=== PATIENT | male | born 1975 | race American Indian/Alaskan Native ===

== ENCOUNTER 2019-06-17 20:44 | Inpatient (IN) | payer OTHER ==
[2019-06-17] MEDS ORDERED: SODIUM CHLORIDE 0.9% 500 ML 500 ML IV ONE (21:19)
[2019-06-17] MEDS ORDERED: ACETAMINOPHEN 500 MG TAB PO STA (21:19)
[2019-06-17] MEDS ORDERED: ACETAMINOPHEN 325 MG TAB PO ONE (21:33)
[2019-06-17 21:35] LABS: Basophils # (Auto) 0.1 K/mm3 (0.0-0.1); Basophils % (Auto) 0.7 % (0.0-1.8); Eosinophils % (Auto) 0.2 % (0.0-4.3); Hematocrit 35.3 % (35.5-45.6); Hemoglobin 11.7 gm/dl (11.8-15.2); Lymphocytes # (Auto) 1.7 K/mm3 (1.2-5.4); Lymphocytes % (Auto) 13.9 % (13.4-35.0); Mean Corpuscular HGB Conc 33 % (32-34); Mean Corpuscular Volume 71 fl (84-94); Monocytes # (Auto) 1.6 K/mm3 (0.0-0.8); Platelet Count 377 K/mm3 (140-440); Red Blood Count 4.97 M/mm3 (3.65-5.03); Red Cell Distribution Width 15.6 % (13.2-15.2)
[2019-06-17 21:46] LABS: INR 1.14 (0.87-1.13)
[2019-06-17 21:50] LABS: Alanine Aminotransferase 26 units/L (7-56); Albumin 4.4 g/dL (3.9-5); BUN/Creatinine Ratio 8; Blood Urea Nitrogen 9 mg/dL (9-20); Calcium 9.4 mg/dL (8.4-10.2); Hemolysis Index 0
--- NOTE | 2019-06-17 22:02 | XRay Report ---
CHEST 2 VIEWS INDICATION / CLINICAL INFORMATION: possible Sepsis. COMPARISON: None available. FINDINGS: SUPPORT DEVICES: None. HEART / MEDIASTINUM: Normal heart size when allowing for somewhat low lung volumes. LUNGS / PLEURA: Lung volumes are low, resulting in elevation of the diaphragm and bibasilar scattered atelectatic changes, which appear as linear opacities at the bases. No overt pulmonary consolidation . No pleural fluid. No pneumothorax. ADDITIONAL FINDINGS: No significant additional findings. IMPRESSION: Scattered linear opacities at the lung bases are nonspecific but more suggestive of multifocal discoi d atelectasis than pneumonia. Signer Name: Jason Salgado MD Signed: 06/17/2019 9:57 PM Workstation Name: [id number]
[2019-06-17] MEDS ORDERED: SODIUM CHLORIDE 0.9% 1000 ML 1,000 ML IV ONE (23:46)
[2019-06-17 23:50] LABS: Bacteria,Urine 1+ /HPF (Negative); Bilirubin,Urine NEG (Negative); Blood,Urine LG (Negative); Color,Urine Yellow (Yellow); Mucus,Urine FEW /HPF
[2019-06-18] MEDS ORDERED: MORPHINE 4 MG/1 ML INJ IV ONE (00:13)
[2019-06-18] MEDS ORDERED: cefTRIAXone/NS 1 GM/50 ML 1 GM/50 ML BAG IV ONE (00:17)
--- NOTE | 2019-06-18 00:18 | Emergency Department Report ---
ED Chest Pain HPI - General Chief Complaint: Chest Pain Stated Complaint: CHEST PAIN/SWEATING Time Seen by Provider: 06/17/19 22:42 Source: patient Mode of arrival: Ambulatory Limitations: No Limitations - History of Present Illness Initial Comments: 44-year-old -Luxembourger male presents to the emergency department with a complaint of a 5 to 6-day history of some midsternal chest discomfort that radiates to both shoulders, shortness of breath and a mild cough. He has been having intermittent low-grade fevers. Patient has a past medical history of hypertension and acid reflux. He denies any tobacco or illicit drug use. No recent travel. No sick contacts at home or any known exposure to anyone positive for Covid 19. He has not taken anything for symptoms prior to presentation today. Severity scale (0 -10): 10 - Related Data Previous Rx's Medication Instructions Recorded Last Taken Type Albuterol INH(or & Nicu Only) 2 puff IH QID PRN #8.5 gram 06/18/19 Unknown Rx [ProAir HFA Inhaler] Amoxicillin/Potassium Clav 1 each PO BID #14 tablet 06/18/19 Unknown Rx [Augmentin 875-125 Tablet] Azithromycin [Zithromax Z-LIZA] 250 mg PO DAILY #6 tab 06/18/19 Unknown Rx Allergies Allergy/AdvReac Type Severity Reaction Status Date / Time No Known Allergies Allergy Unverified 06/17/19 21:10 Heart Score - HEART Score History: Slightly suspicious EKG: Normal Age: < 45 Risk factors: 1-2 risk factors Troponin: < normal limit HEART Score: 1 - Critical Actions Critical Actions: 0-3 pts:0.9-1.7%risk of adverse cardiac event.Candidate for discharge ED Review of Systems ROS: Stated complaint: CHEST PAIN/SWEATING Other details as noted in HPI Comment: All other systems reviewed and negative Constitutional: chills, fever Eyes: denies: eye pain, vision change ENT: denies: ear pain, throat pain Respiratory: cough, shortness of breath Cardiovascular: chest pain. denies: palpitations Gastrointestinal: denies: abdominal pain, vomiting Genitourinary: denies: dysuria, discharge Musculoskeletal: denies: back pain, joint swelling Skin: denies: rash, lesions Neurological: denies: headache, weakness ED Past Medical Hx - Past Medical History Previous Medical History?: Yes Hx Hypertension: Yes Hx GERD: Yes Additional medical history: Iron Deficiency - Surgical History Past Surgical History?: No - Social History Smoking Status: Never Smoker - Medications Home Medications: Home Medications Medication Instructions Recorded Confirmed Last Taken Type Albuterol INH(or & Nicu Only) 2 puff IH QID PRN #8.5 gram 06/18/19 Unknown Rx [ProAir HFA Inhaler] Amoxicillin/Potassium Clav 1 each PO BID #14 tablet 06/18/19 Unknown Rx [Augmentin 875-125 Tablet] Azithromycin [Zithromax Z-LIZA] 250 mg PO DAILY #6 tab 06/18/19 Unknown Rx ED Physical Exam - General Limitations: No Limitations - Other Other exam information: GENERAL: The patient is well-developed well-nourished. HENT: Normocephalic. Atraumatic. Patient has moist mucous membranes. EYES: Extraocular motions are intact. Pupils equal reactive to light bilaterally. NECK: Supple. Trachea is midline. CHEST/LUNGS: Clear to auscultation. Moderate tachypnea. HEART/CARDIOVASCULAR: Regular. There is moderate tachycardia. There is no murmur. ABDOMEN: Abdomen is soft, nontender. Patient has normal bowel sounds. Obese h abitus. SKIN: Skin is warm and dry. NEURO: The patient is awake, alert, and oriented. The patient is cooperative. The patient has no focal neurologic deficits. Normal speech. MUSCULOSKELETAL: There is no tenderness or deformity. There is no evidence of acute injury. ED Course Vital Signs 06/17/19 06/17/19 06/17/19 20:47 21:32 23:00 Temperature 101.0 F H 98.8 F Pulse Rate 125 H 113 H Respiratory 24 20 19 Rate Blood Pressure 173/92 Blood Pressure 132/93 [Left] O2 Sat by Pulse 98 95 Oximetry 06/17/19 23:45 Temperature Pulse Rate 108 H Respiratory 22 Rate Blood Pressure 140/88 Blood Pressure [Left] O2 Sat by Pulse 95 Oximetry LUPE score - Lupe Score Age > 65: (0) No Aspirin use within the Past 7 Days: (0) No 3 or more CAD Risk Factors: (0) No 2 or more Angina events in past 24 hrs: (1) Yes Known CAD with more than 50% Stenosis: (0) No Elevated Cardiac Markers: (0) No ST Deviation Greater than 0.5mm: (0) No LUPE Score: 1 ED Medical Decision Making - Lab Data Result diagrams: 06/17/19 21:23 06/17/19 21:23 - EKG Data -: EKG Interpreted by Me EKG shows normal: sinus rhythm, axis, intervals, QRS complexes, ST-T waves Rate: normal - EKG Data When compared to previous EKG there are: previous EKG unavailable Interpretation: normal EKG - Radiology Data Radiology results: report reviewed, image reviewed CHEST 2 VIEWS INDICATION / CLINICAL INFORMATION: possible Sepsis. COMPARISON: None available. FINDINGS: SUPPORT DEVICES: None. HEART / MEDIASTINUM: Normal heart size when allowing for somewhat low lung volumes. LUNGS / PLEURA: Lung volumes are low, resulting in elevation of the diaphragm and bibasilar scattered atelectatic changes, which appear as linear opacities at the bases. No overt pulmonary consolidation. No pleural fluid. No pneumothorax. ADDITIONAL FINDINGS: No significant additional findings. IMPRESSION: Scattered linear opacities at the lung bases are nonspecific but more suggestive of multifocal discoid atelectasis than pneumonia. - Medical Decision Making This patient presents to the emergency department with a few days of shortness of breath, chest pain, cough and intermittent fever. Presents with a fever of 101 F. Chest x-ray shows some scattered bilateral opacities. No pleural effusion or pneumothorax. EKG did not show any signs of ST elevation DC. Patient has received Tylenol for his fever, IV fluid resuscitation. He originally came in as a code sepsis. Blood cultures were sent and the patient has been started on Rocephin and azithromycin. Patient's labs show a very mild leukocytosis of 12,000. First troponin is negative. Normal metabolic panel. Patient has a slightly elevated ferritin level and a very elevated CRP. Given his chest pain, shortness of breath, and fever, as well as the chest x-ray concerning for some scattered opacities, the patient is at least moderate suspicion for Covid 19. The request for testing has been submitted. The patient was reevaluated multiple times over multiple hours and continues to breathe between 30 and 40 breaths/min. This is prior to any type of exertion or exercise testing. For these reasons the patient will be admitted to the hospital for further evaluation and treatment and was accepted for admission by the hospitalist, Dr. Sandoval. Critical care attestation.: If time is entered above; I have spent that time in minutes in the direct care of this critically ill patient, excluding procedure time. ED Disposition Clinical Impression: Shortness of breath, Atypical chest pain, Suspected 2019 novel coronavirus infection Disposition: OP ADMIT IP TO THIS HOSP Is pt being admited?: Yes Condition: Fair Instructions: Chest Pain (ED), Viral Syndrome (ED), Dyspnea (ED) Prescriptions: Amoxicillin/Potassium Clav [Augmentin 875-125 Tablet] 1 each PO BID #14 tablet Albuterol INH(or & Nicu Only) [ProAir HFA Inhaler] 2 puff IH QID PRN #8.5 gram PRN Reason: Shortness Of Breath Azithromycin [Zithromax Z-LIZA] 250 mg PO DAILY #6 tab Time of Disposition: 01:19
[2019-06-18] MEDS ORDERED: AZITHROMYCIN 500 MG in SODIUM CHLORIDE 0.9% 250ML 250 ML IV ONE (01:07)
[2019-06-18] MEDS ORDERED: ALBUTEROL 8.5 GM INHALATION IH ONE (01:15)
--- NOTE | 2019-06-18 02:53 | History and Physical Report ---
History of Present Illness History of present illness: 44-year-old man with history of hypertension, GERD comes emergency room for evaluation. he stated that over the last 1 week she has been experiencing chest pain in the epigastric area which he describes as a tightness, constant, intensity 5/10, no radiation, cannot identify exacerbating factor. He denies nausea vomiting, diaphoresis, palpitation, sick contacts, recent travel. Complains of shortness of breath and dry cough, fever, chills. Patient will be admitted for pneumonia, rule out covid Review Of Systems: Constitutional: no weight loss Ears, eyes, nose, mouth and throat: no nasal congestion, no nasal discharge, no sinus pressure, blurry vision, diplopia Neck: No neck pain or rigidity. Cardiovascular: No palpitation Respiratory: +shortness of breath, cough Gastrointestinal: No hematochezia Genitourinary : no dysuria, frequency Musculoskeletal: no muscle ache , joint pain Integumentary: no rash, no pruritis Neurological: no parathesias, focal weakness Endocrine: no cold or heat intolerance, no polyuria or polydipsia Hematologic/Lymphatic: no easy bruising, no easy bleeding, no gland swelling Allergic/Immunologic: no urticaria, no angioedema. PAST MEDICAL HISTORY: Hypertension, GERD PAST SURGICAL HISTORY: None SOCIAL HISTORY: Denies alcohol, tobacco, drugs FAMILY HISTORY: Hypertension Medications and Allergies Allergies Allergy/AdvReac Type Severity Reaction Status Date / Time No Known Allergies Allergy Unverified 06/17/19 21:10 Home Medications Medication Instructions Recorded Confirmed Last Taken Type Albuterol INH(or & Nicu Only) 2 puff IH QID PRN #8.5 gram 06/18/19 Unknown Rx [ProAir HFA Inhaler] Amoxicillin/Potassium Clav 1 each PO BID #14 tablet 06/18/19 Unknown Rx [Augmentin 875-125 Tablet] Azithromycin [Zithromax Z-LIZA] 250 mg PO DAILY #6 tab 06/18/19 Unknown Rx Exam - Physical Exam Narrative exam: Gen. appearance: Patient lying in bed, no apparent distress HEENT: Normocephalic, atraumatic, pupils equally round and reactive to light, extraocular movement intact, and no sclericterus,. No JVD or thyromegaly or nodule,neck supple, no carotid bruit ,mucous membranes moist, no exudate or erythema Heart: S1, S2, regular rate and rhythm Lungs: Crackles bilaterally, breathing comfortable Abdomen: Positive bowel sounds, nontender, nondistended, no organomegaly Extremity: no edema, cyanosis, clubbing Skin: No rash, nodules, warm, dry Neuro: speech is fluent, moves extremities, sensory intact - Constitutional Vitals: Temp Pulse Resp BP Pulse Ox 98.8 F 105 H 18 145/87 97 06/17/19 23:00 06/18/19 01:30 06/18/19 01:34 06/18/19 01:30 06/18/19 01:30 Results - Labs CBC & Chem 7: 06/17/19 21:23 06/17/19 21:23 Labs: Abnormal lab results 06/17/19 06/17/19 06/17/19 Range/Units 21:23 21:23 21:23 WBC 12.3 H (4.5-11.0) K/mm3 Hgb 11.7 L (11.8-15.2) gm/dl Hct 35.3 L (35.5-45.6) % MCV 71 L (84-94) fl MCH 24 L (28-32) pg RDW 15.6 H (13.2-15.2) % Fannin % (Auto) 13.0 H (0.0-7.3) % Fannin # 1.6 H (0.0-0.8) K/mm3 Seg Neutrophils % 72.2 H (40.0-70.0) % Seg Neutrophils # 8.9 H (1.8-7.7) K/mm3 INR 1.14 H (0.87-1.13) VBG pH (7.320-7.420) Sodium 131 L (137-145) mmol/L Chloride 93.7 L (98-107) mmol/L Glucose 132 H (75-100) mg/dL Ferritin (13.0-400.0) ng/mL C-Reactive Protein (0.00-1.30) mg/dL Total Protein 8.6 H (6.3-8.2) g/dL 06/17/19 06/17/19 06/17/19 Range/Units 21:23 23:05 23:05 WBC (4.5-11.0) K/mm3 Hgb (11.8-15.2) gm/dl Hct (35.5-45.6) % MCV (84-94) fl MCH (28-32) pg RDW (13.2-15.2) % Fannin % (Auto) (0.0-7.3) % Fannin # (0.0-0.8) K/mm3 Seg Neutrophils % (40.0-70.0) % Seg Neutrophils # (1.8-7.7) K/mm3 INR (0.87-1.13) VBG pH 7.480 H (7.320-7.420) Sodium (137-145) mmol/L Chloride (98-107) mmol/L Glucose (75-100) mg/dL Ferritin 408.8 H (13.0-400.0) ng/mL C-Reactive Protein 15.30 H (0.00-1.30) mg/dL Total Protein (6.3-8.2) g/dL Assessment and Plan Assessment Chest pain/shortness of breath rule out covid Check cardiac enzymes, consult cardiology Start Rocephienriqueta, consult ID Placed on contact and droplet precaution Paperwork for COVID were filled out, Department of Health notified Hypertension Continue outpatient medications DVT prophylaxis
[2019-06-18] MEDS ORDERED: ACETAMINOPHEN 325 MG TAB PO PRN (03:07)
[2019-06-18] MEDS ORDERED: oxyCODONE /ACETAMINOPHEN 5-325MG TAB PO PRN (03:07)
[2019-06-18] MEDS ORDERED: ONDANSETRON 4 MG/2 ML INJ IV PRN (03:07)
[2019-06-18 06:58] LABS: Basophils % (Auto) 0.3 % (0.0-1.8); Eosinophils % (Auto) 0.1 % (0.0-4.3); Hematocrit 32.1 % (35.5-45.6); Hemoglobin 10.4 gm/dl (11.8-15.2); Lymphocytes # (Auto) 1.3 K/mm3 (1.2-5.4); Lymphocytes % (Auto) 12.1 % (13.4-35.0); Mean Corpuscular HGB Conc 33 % (32-34); Mean Corpuscular Volume 71 fl (84-94); Monocytes # (Auto) 1.2 K/mm3 (0.0-0.8); Platelet Count 339 K/mm3 (140-440); Red Blood Count 4.53 M/mm3 (3.65-5.03); Red Cell Distribution Width 15.6 % (13.2-15.2)
[2019-06-18 07:17] LABS: BUN/Creatinine Ratio 7; Blood Urea Nitrogen 7 mg/dL (9-20); Hemolysis Index 0
[2019-06-18] MEDS: PANTOPRAZOLE 40 MG TAB PO SCH (09:23)
[2019-06-18] MEDS: cefTRIAXone/NS 1 GM/50 ML 1 GM/50 ML BAG IV SCH (09:23)
[2019-06-18] MEDS: ENOXAPARIN 40 MG/0.4 ML INJ SUB-Q SCH (09:23)
[2019-06-18] MEDS ORDERED: NON-FORMULARY EACH (Esomeprazole Magnesium [Nexium] 40 MG) PO SCH (10:00)
--- NOTE | 2019-06-18 11:02 | Consultation ---
History of Present Illness Consult date: 06/18/19 Requesting physician: JAIMIE HILL Consult reason: chest pain History of present illness: The pt is a 44-year-old male with a past medical history of HTN and GERD. He is COVID-19 PUI and thus HPI is obtained per the chart. He presented to the ED with c/o a 5 to 6-day history of midsternal chest discomfort that radiates to both shoulders, shortness of breath and a mild cough. He has been having intermittent low-grade fevers. He denies any tobacco or illicit drug use. No recent travel. No sick contacts at home or any known exposure to anyone positive for Covid 19. He has not taken anything for symptoms prior to presentation today. Past History Past Medical History: hypertension Social history: smoking Medications and Allergies Allergies Allergy/AdvReac Type Severity Reaction Status Date / Time No Known Allergies Allergy Unverified 06/17/19 21:10 Home Medications Medication Instructions Recorded Confirmed Last Taken Type Albuterol INH(or & Nicu Only) 2 puff IH QID PRN #8.5 gram 06/18/19 Unknown Rx [ProAir HFA Inhaler] Amoxicillin/Potassium Clav 1 each PO BID #14 tablet 06/18/19 Unknown Rx [Augmentin 875-125 Tablet] Azithromycin [Zithromax Z-LIZA] 250 mg PO DAILY #6 tab 06/18/19 Unknown Rx Esomeprazole Magnesium [NexIUM] 40 mg PO QDAY 06/18/19 06/18/19 06/17/19 09:00 History Ferrous Sulfate [Iron 325 MG] 325 mg PO DAILY 06/18/19 06/18/19 06/17/19 09:00 History amLODIPine [Norvasc] 5 mg PO DAILY 06/18/19 06/18/19 06/17/19 09:00 History hydrALAZINE [Apresoline] 25 mg PO BID 06/18/19 06/18/19 06/17/19 09:00 History hydroCHLOROthiazide 12.5 mg PO DAILY 06/18/19 06/18/19 06/17/19 09:00 History [Hydrochlorothiazide] Active Meds: Active Medications Acetaminophen (Tylenol) 650 mg PO Q4H PRN PRN Reason: Pain MILD(1-3)/Fever >100.5/RAMIREZ Enoxaparin Sodium (Enoxaparin) 40 mg SUB-Q QDAY [facility] Last Admin: 06/18/19 09:23 Dose: 40 mg Documented by: Ceftriaxone Sodium (Rocephin/Ns 1 Gm/50 Ml) 1 gm in 50 mls @ 100 mls/hr IV Q24HR [facility]; Protocol Last Admin: 06/18/19 09:23 Dose: 100 mls/hr Documented by: Ondansetron HCl (Zofran) 4 mg IV Q8H PRN PRN Reason: Nausea And Vomiting Oxycodone/Acetaminophen (Percocet 5/325) 1 tab PO Q6H PRN PRN Reason: Pain, Moderate (4-6) Pantoprazole Sodium (Protonix) 40 mg PO DAILY [facility] Last Admin: 06/18/19 09:23 Dose: 40 mg Documented by: Sodium Chloride (Sodium Chloride Flush Syringe 10 Ml) 10 ml IV BID [facility] Last Admin: 06/18/19 09:24 Dose: 10 ml Documented by: Sodium Chloride (Sodium Chloride Flush Syringe 10 Ml) 10 ml IV PRN PRN PRN Reason: LINE FLUSH Review of Systems Constitutional: other (as per HPI) Physical Examination Vital Signs Temp Pulse Resp BP Pulse Ox 101.0 F H 125 H 24 173/92 98 06/17/19 20:47 06/17/19 20:47 06/17/19 20:47 06/17/19 20:47 06/17/19 20:47 Narrative exam: Physical examination deferred to primary team Results 06/18/19 05:46 06/18/19 05:46 Cardiac Enzymes 06/17/19 06/17/19 Range/Units 21:23 23:05 AST 23 (5-40) units/L Lactate Dehydrogenase 144 (91-180) units/L Coagulation 06/17/19 Range/Units 21:23 PT 14.8 (12.2-14.9) Sec. INR 1.14 H (0.87-1.13) CBC 06/17/19 06/18/19 Range/Units 21:23 05:46 WBC 12.3 H 10.7 (4.5-11.0) K/mm3 RBC 4.97 4.53 (3.65-5.03) M/mm3 Hgb 11.7 L 10.4 L (11.8-15.2) gm/dl Hct 35.3 L 32.1 L (35.5-45.6) % Plt Count 377 339 (140-440) K/mm3 Lymph # 1.7 1.3 (1.2-5.4) K/mm3 Davidson # 1.6 H 1.2 H (0.0-0.8) K/mm3 Eos # 0.0 0.0 (0.0-0.4) K/mm3 Baso # 0.1 0.0 (0.0-0.1) K/mm3 Comprehensive Metabolic Panel 06/17/19 06/18/19 Range/Units 21:23 05:46 Sodium 131 L 133 L (137-145) mmol/L Potassium 4.0 3.9 (3.6-5.0) mmol/L Chloride 93.7 L 94.1 L (98-107) mmol/L Carbon Dioxide 24 21 L (22-30) mmol/L BUN 9 7 L (9-20) mg/dL Creatinine 1.1 1.0 (0.8-1.5) mg/dL Glucose 132 H 139 H (75-100) mg/dL Calcium 9.4 9.0 (8.4-10.2) mg/dL AST 23 (5-40) units/L ALT 26 (7-56) units/L Alkaline Phosphatase 97 (35-129) units/L Total Protein 8.6 H (6.3-8.2) g/dL Albumin 4.4 (3.9-5) g/dL - Imaging and Cardiology EKG: report reviewed, image reviewed EKG interpretations - Telemetry EKG Rhythm: Sinus Tachycardia - EKG Sinus rhythms and dysrhythmias: sinus tachycardia Assessment and Plan ECG shows sinus tachycardia, no acute ischemic changes. Trop negative for AMI x 1, will obtain second set of Janeth. R/o COVID-19 per primary. Can consider stress test once medically stabilized - could be done as OP. Will follow. The patient has been seen in conjunction with Dr. Alejandrina Aguilar who agrees with the assessment and plan of care. - Patient Problems (1) Suspected 2019 novel coronavirus infection Current Visit: Yes Status: Suspected (2) Atypical chest pain Current Visit: Yes Status: Acute (3) Shortness of breath Current Visit: Yes Status: Acute (4) Sinus tachycardia Current Visit: Yes Status: Acute (5) Hypertension Current Visit: Yes Status: Chronic
--- NOTE | 2019-06-18 15:30 | Progress Note ---
Assessment and Plan Assessment and plan: Patient is a 44-year-old man with history of hypertension, GERD comes emergency room for evaluation. he stated that over the last 1 week she has been experiencing chest pain in the epigastric area which he describes as a tightness, constant, intensity 5/10, no radiation, cannot identify exacerbating factor. He denies nausea vomiting, diaphoresis, palpitation, sick contacts, recent travel. Complains of shortness of breath and dry cough, fever, chills. Patient will be admitted for pneumonia, rule out covid * pCXR IMPRESSION: Scattered linear opacities at the lung bases are nonspecific but more suggestive of multifocal discoid atelectasis than pneumonia. Bilateral pneumonia: treat with ABX, on azithromycin/Rocephin, consult ID PUI COVID 19: Paperwork for COVID were filled out, Department of Health notified: Placed on contact and droplet precaution Chest pains, atypical most likely costocondritis +/- pleurisy: Consulted Cardiology, input noted Hypertension: Continue outpatient medications DVT prophylaxis reviewed 06/18/19: he is doing much better, but still low grade temp. On Room air, will get do exercise pulse oximetry, if afebrile and exercise pulse ox good then d/c tomorrow History Interval history: Patient was seen and examined. Follow-up on current diagnosis PNA. Overnight uneventful as no events directly reported to me. Patient denies any chest pain, shortness breath, nausea/vomiting or severe headaches. Imaging, nursing note, chart, labs and old chart reviewed. Discussed with patient. Hospitalist Physical - Physical exam Narrative exam: Gen: WDWN, NAD, Awake, Alert, Orientated HEENT: NCAT, EOMI, PERRL, OP Clear Neck: supple, no adenopathy, no thyromegaly, no JVD CVS/Heart: RRR, normal S1S2, pulses present bilaterally Chest/Lungs: bilateral inspiratory crackles, Symmetrical chest expansion, good air entry bilaterally GI/Abdomen: soft, NTND, good bowel sounds, no guarding or rebound /Bladder: no suprapubic tenderness, no CVA or paraspinal tenderness Extermity/Skin: no c/c/e, no obvious rash MSK: FROM x 4 Neuro: CN 2-12 grossly intact, no new focal deficits Psych: calm - Constitutional Vitals: Temp Pulse Resp BP Pulse Ox 99.9 F H 108 H 20 133/75 95 06/18/19 11:07 06/18/19 11:07 06/18/19 11:07 06/18/19 11:07 06/18/19 11:07 LUPE score - Lupe Score Age > 65: (0) No Aspirin use within the Past 7 Days: (0) No 3 or more CAD Risk Factors: (0) No 2 or more Angina events in past 24 hrs: (1) Yes Known CAD with more than 50% Stenosis: (0) No Elevated Cardiac Markers: (0) No ST Deviation Greater than 0.5mm: (0) No LUPE Score: 1 Results - Labs CBC & Chem 7: 06/18/19 05:46 06/18/19 05:46 Labs: Laboratory Last Values WBC 10.7 K/mm3 (4.5-11.0) 06/18/19 05:46 RBC 4.53 M/mm3 (3.65-5.03) 06/18/19 05:46 Hgb 10.4 gm/dl (11.8-15.2) L 06/18/19 05:46 Hct 32.1 % (35.5-45.6) L 06/18/19 05:46 MCV 71 fl (84-94) L 06/18/19 05:46 MCH 23 pg (28-32) L 06/18/19 05:46 MCHC 33 % (32-34) 06/18/19 05:46 RDW 15.6 % (13.2-15.2) H 06/18/19 05:46 Plt Count 339 K/mm3 (140-440) 06/18/19 05:46 Lymph % (Auto) 12.1 % (13.4-35.0) L 06/18/19 05:46 [place] % (Auto) 11.0 % (0.0-7.3) H 06/18/19 05:46 Eos % (Auto) 0.1 % (0.0-4.3) 06/18/19 05:46 Baso % (Auto) 0.3 % (0.0-1.8) 06/18/19 05:46 Lymph # 1.3 K/mm3 (1.2-5.4) 06/18/19 05:46 [place] # 1.2 K/mm3 (0.0-0.8) H 06/18/19 05:46 Eos # 0.0 K/mm3 (0.0-0.4) 06/18/19 05:46 Baso # 0.0 K/mm3 (0.0-0.1) 06/18/19 05:46 Seg Neutrophils % 76.5 % (40.0-70.0) H 06/18/19 05:46 Seg Neutrophils # 8.2 K/mm3 (1.8-7.7) H 06/18/19 05:46 PT 14.8 Sec. (12.2-14.9) 06/17/19 21:23 INR 1.14 (0.87-1.13) H 06/17/19 21:23 VBG pH 7.480 (7.320-7.420) H 06/17/19 21:23 Sodium 133 mmol/L (137-145) L 06/18/19 05:46 Potassium 3.9 mmol/L (3.6-5.0) 06/18/19 05:46 Chloride 94.1 mmol/L (98-107) L 06/18/19 05:46 Carbon Dioxide 21 mmol/L (22-30) L 06/18/19 05:46 Anion Gap 22 mmol/L 06/18/19 05:46 BUN 7 mg/dL (9-20) L 06/18/19 05:46 Creatinine 1.0 mg/dL (0.8-1.5) 06/18/19 05:46 Estimated GFR > 60 ml/min 06/18/19 05:46 BUN/Creatinine Ratio 7 % 06/18/19 05:46 Glucose 139 mg/dL (75-100) H 06/18/19 05:46 Lactic Acid 0.90 mmol/L (0.7-2.0) 06/17/19 21:23 Calcium 9.0 mg/dL (8.4-10.2) 06/18/19 05:46 Ferritin 408.8 ng/mL (13.0-400.0) H 06/17/19 23:05 Total Bilirubin 0.30 mg/dL (0.1-1.2) 06/17/19 21:23 AST 23 units/L (5-40) 06/17/19 21:23 ALT 26 units/L (7-56) 06/17/19 21:23 Alkaline Phosphatase 97 units/L (35-129) 06/17/19 21:23 Lactate Dehydrogenase 144 units/L (91-180) 06/17/19 23:05 Troponin T < 0.010 ng/mL (0.00-0.029) 06/18/19 13:44 C-Reactive Protein 15.30 mg/dL (0.00-1.30) H 06/17/19 23:05 Total Protein 8.6 g/dL (6.3-8.2) H 06/17/19 21:23 Albumin 4.4 g/dL (3.9-5) 06/17/19 21:23 Albumin/Globulin Ratio 1.0 % 06/17/19 21:23 Urine Color Yellow (Yellow) 06/17/19 23:10 Urine Turbidity Clear (Clear) 06/17/19 23:10 Urine pH 6.0 (5.0-7.0) 06/17/19 23:10 Ur Specific [place] 1.027 (1.003-1.030) 06/17/19 23:10 Urine Protein 100 mg/dl mg/dL (Negative) 06/17/19 23:10 Urine Glucose (UA) Neg mg/dL (Negative) 06/17/19 23:10 Urine Ketones Neg mg/dL (Negative) 06/17/19 23:10 Urine Blood Lg (Negative) 06/17/19 23:10 Urine Nitrite Neg (Negative) 06/17/19 23:10 Urine Bilirubin Neg (Negative) 06/17/19 23:10 Urine Urobilinogen 4.0 mg/dL (<2.0) 06/17/19 23:10 Ur Leukocyte Esterase Neg (Negative) 06/17/19 23:10 Urine WBC (Auto) 6.0 /HPF (0.0-6.0) 06/17/19 23:10 Urine RBC (Auto) 63.0 /HPF (0.0-6.0) 06/17/19 23:10 U Epithel Cells (Auto) < 1.0 /HPF (0-13.0) 06/17/19 23:10 Urine Bacteria (Auto) 1+ /HPF (Negative) 06/17/19 23:10 Urine Mucus Few /HPF 06/17/19 23:10 Influenza A (Rapid) Negative (Negative) 06/17/19 23:10 Influenza B (Rapid) Negative (Negative) 06/17/19 23:10 Microbiology: Microbiology 06/17/19 23:10 Urine,Clean Catch Urine Culture - Preliminary NO GROWTH AFTER 24 HOURS 06/17/19 21:23 Peripheral/Venous Blood Culture - Preliminary Culture in Progress 06/17/19 21:23 Peripheral/Venous Blood Culture - Preliminary Culture in Progress Becerra/IV: Voiding Method Toilet IV Catheter Type [Right Hand] INT / Saline Lock Active Medications - Current Medications Current Medications: Generic Name Dose Route Start Last Admin Trade Name Freq PRN Reason Stop Dose Admin Acetaminophen 650 mg 06/18/19 03:07 Tylenol PO Q4H PRN Pain MILD(1-3)/Fever >100.5/RAMIREZ Enoxaparin Sodium 40 mg 06/18/19 10:00 06/18/19 09:23 Enoxaparin SUB-Q 40 mg QDAY TED Administration Ceftriaxone Sodium 1 gm in 50 mls @ 100 mls/hr 06/18/19 10:00 06/18/19 09:23 Rocephin/Ns 1 Gm/50 Ml IV 100 mls/hr Q24HR TED Administration Protocol Ondansetron HCl 4 mg 06/18/19 03:07 Zofran IV Q8H PRN Nausea And Vomiting Oxycodone/Acetaminophen 1 tab 06/18/19 03:07 Percocet 5/325 PO Q6H PRN Pain, Moderate (4-6) Pantoprazole Sodium 40 mg 06/18/19 10:00 06/18/19 09:23 Protonix PO 40 mg DAILY TED Administration Sodium Chloride 10 ml 06/18/19 10:00 06/18/19 09:24 Sodium Chloride Flush Syringe 10 Ml IV 10 ml BID TED Administration Sodium Chloride 10 ml 06/18/19 03:07 Sodium Chloride Flush Syringe 10 Ml IV PRN PRN LINE FLUSH
[2019-06-19 04:30] LABS: C-Reactive Protein 13.4 mg/dL (0.00-1.30)
[2019-06-19] MEDS: cefTRIAXone/NS 1 GM/50 ML 1 GM/50 ML BAG IV SCH (09:19)
[2019-06-19] MEDS: PANTOPRAZOLE 40 MG TAB PO SCH (09:19)
[2019-06-19] MEDS: ENOXAPARIN 40 MG/0.4 ML INJ SUB-Q SCH (09:19)
--- NOTE | 2019-06-19 11:04 | Progress Note ---
Assessment and Plan AMI r/o. Pt for possible d/c home today per primary team. R/o COVID-19 per primary. Can consider stress test once medically stabilized - could be done as OP. Nothing further to add from cardiac perspective at this time. Will sign off. Recommend pt follow up in our office with Dr. Alejandrina Aguilar within 1 month of discharge ([phone]). The patient has been seen in conjunction with Dr. Alejandrina Aguilar who agrees with the assessment and plan of care. - Patient Problems (1) Suspected 2019 novel coronavirus infection Current Visit: Yes Status: Suspected (2) Atypical chest pain Current Visit: Yes Status: Acute (3) Shortness of breath Current Visit: Yes Status: Acute (4) Sinus tachycardia Current Visit: Yes Status: Acute (5) Hypertension Current Visit: Yes Status: Chronic Subjective Date of service: 06/19/19 Principal diagnosis: cp Interval history: per primary RN - pt awake and in no distress pt on RA. PUI?: Yes Objective Last Vital Signs Temp 97.8 F 06/19/19 04:15 Pulse 111 H 06/19/19 04:15 Resp 18 06/18/19 22:10 BP 160/95 06/19/19 04:15 Pulse Ox 97 06/19/19 09:27 - Physical Examination Narrative exam: Physical examination deferred to primary team - Labs and Meds Cardiac Enzymes 06/19/19 Range/Units 03:34 Lactate Dehydrogenase 145 (91-180) units/L - Imaging and Cardiology EKG: report reviewed, image reviewed - EKG Sinus rhythms and dysrhythmias: sinus tachycardia
[2019-06-19] MEDS ORDERED: AZITHROMYCIN 250 MG TAB PO SCH (12:00)
--- NOTE | 2019-06-19 12:26 | Discharge Summary ---
Providers - Providers Date of Admission: 06/18/19 03:37 Date of discharge: 06/19/19 Attending physician: COLETTE SAUL 06/18/19 03:07 Consult to Physician [CONS] Routine Comment: Consulting Provider: TRAN FARMER Physician Instructions: Reason For Exam: cp Primary care physician: APPLIED TECHNOLOGIST Hospitalization Condition: Stable Hospital course: Patient is a 44-year-old man with history of hypertension, GERD comes emergency room for evaluation. he stated that over the last 1 week she has been experiencing chest pain in the epigastric area which he describes as a tightness, constant, intensity 5/10, no radiation, cannot identify exacerbating factor. He denies nausea vomiting, diaphoresis, palpitation, sick contacts, r ecent travel. Complains of shortness of breath and dry cough, fever, chills. Patient will be admitted for pneumonia, rule out covid * pCXR IMPRESSION: Scattered linear opacities at the lung bases are nonspecific but more suggestive of multifocal discoid atelectasis than pneumonia. Bilateral pneumonia: treat with ABX, on azithromycin/Rocephin, consult ID Ruled out COVID 19 Chest pains, atypical most likely costocondritis +/- pleurisy: Consulted Cardiology, input noted Hypertension: Continue outpatient medications DVT prophylaxis reviewed Disposition: DC-01 TO HOME OR SELFCARE Time spent for discharge: 35 minutes Core Measure Documentation - Palliative Care Palliative Care/ Comfort Measures: Not Applicable - Core Measures Any of the following diagnoses?: none - VTE Discharge Requirements Deep Vein Thrombosis/Pulmonary Embolism Present on Admission: No Has pt received <5 days of overlap therapy or INR<2.0: No Anticoagulant overlap therapy prescribed at discharge: No Contraindication No Overlap Therapy order at DC: Not Indicated Exam - Physical Exam Narrative exam: Gen: WDWN, NAD, Awake, Alert, Orientated HEENT: NCAT, EOMI, PERRL, OP Clear Neck: supple, no adenopathy, no thyromegaly, no JVD CVS/Heart: RRR, normal S1S2, pulses present bilaterally Chest/Lungs: bilateral inspiratory crackles, Symmetrical chest expansion, good air entry bilaterally GI/Abdomen: soft, NTND, good bowel sounds, no guarding or rebound /Bladder: no suprapubic tenderness, no CVA or paraspinal tenderness Extermity/Skin: no c/c/e, no obvious rash MSK: FROM x 4 Neuro: CN 2-12 grossly intact, no new focal deficits Psych: calm - Constitutional Vitals: Temp Pulse Resp BP Pulse Ox 97.8 F 111 H 18 160/95 97 06/19/19 04:15 06/19/19 04:15 06/18/19 22:10 06/19/19 04:15 06/19/19 09:27 Plan Activity: other (no strenous activity unless cleared by PCP) Diet: low salt Follow up with: PRIMARY CARE, [Primary Care Provider] - 7 Days Prescriptions: hydrALAZINE [Apresoline TAB] 25 mg PO BID #60 tab Amoxicillin/Potassium Clav [Augmentin 875-125 Tablet] 1 each PO BID #12 tablet oxyCODONE /ACETAMINOPHEN [Percocet 5/325 mg] 1 tab PO Q6H PRN #12 tablet PRN Reason: Pain , Severe (7-10) Albuterol INH(or & Nicu Only) [ProAir HFA Inhaler] 2 puff IH QID PRN #8.5 gram PRN Reason: Shortness Of Breath
[2019-06-19 12:29] VITALS: BP 171/107
[2019-06-20] MEDS ORDERED: cefTRIAXone/NS 2 GM/100 ML 2 GM/100 ML BAG IV SCH (10:00)
== END 2019-06-19 14:16 | disposition home or self-care (01) | DRG 195 ==
LOC: ED 20:44 → 3A 06-18 03:37
PROVIDERS: ADMIT Internal Medicine; ATTEND Internal Medicine
DX: J18.9 Pneumonia, unspecified organism (principal); M94.0 Chondrocostal junction syndrome [Tietze]; I10 Essential (primary) hypertension; K21.9 Gastro-esophageal reflux disease without esophagitis; E61.1 Iron deficiency; Z82.49 Family history of ischemic heart disease and other diseases of the circulatory system; R00.0 Tachycardia, unspecified; Z03.818 Encounter for observation for suspected exposure to other biological agents ruled out
CPT/HCPCS: 36415; 71046; 80048; 80053; 81001; 82140; 82728; 82805; 83615; 84484; 85025; 85379; 85610; 86140; 87040; 87086; 87400; 93005; 93010; G0378; 87502; J0456; J0696; J1650; J2270; J7030; J7040; J7050

== ENCOUNTER 2019-07-08 09:30 | Emergency (ER) | payer SELFPAY ==
--- NOTE | 2019-07-08 10:40 | XRay Report ---
CHEST 2 VIEWS INDICATION: SOB, cough, recent dx of pneumonia.. COMPARISON: 06/17/2019 FINDINGS: Support devices: None. Heart: Within normal limits. Lungs/pleura: Linear densities at the left lung base consistent with discoid atelectasis have resolve d. Linear densities at the right lung base have decreased by 50%. No pleural effusion or pneumothora x. Additional findings: None. IMPRESSION: Left lung findings have resolved since the previous exam. There is minor linear opacity remaining at the right lung base which remains most consistent with discoid atelectasis. No convincing pneumonia. Signer Name: Ramin Sales Jr, MD Signed: 07/08/2019 10:35 AM Workstation Name: [id number]
[2019-07-08 11:10] LABS: Basophils # (Auto) 0.1 K/mm3 (0.0-0.1); Basophils % (Auto) 0.9 % (0.0-1.8); Eosinophils % (Auto) 0.4 % (0.0-4.3); Hematocrit 36.1 % (35.5-45.6); Hemoglobin 11.6 gm/dl (11.8-15.2); Lymphocytes # (Auto) 1.3 K/mm3 (1.2-5.4); Lymphocytes % (Auto) 15.6 % (13.4-35.0); Mean Corpuscular HGB Conc 32 % (32-34); Mean Corpuscular Volume 71 fl (84-94); Monocytes # (Auto) 0.7 K/mm3 (0.0-0.8); Monocytes % (Auto) 8.4 % (0.0-7.3); Platelet Count 334 K/mm3 (140-440); Red Blood Count 5.08 M/mm3 (3.65-5.03)
[2019-07-08 11:20] LABS: INR 1.05 (0.87-1.13)
[2019-07-08 11:21] LABS: Partial Thromboplastin Time 32.7 Sec. (24.2-36.6)
--- NOTE | 2019-07-08 11:30 | Emergency Department Report ---
- General Chief Complaint: Upper Respiratory Infection Stated Complaint: CHEST PAIN Time Seen by Provider: 07/08/19 10:27 Source: patient Mode of arrival: Ambulatory Limitations: No Limitations - History of Present Illness Initial Comments: This is a 44-year-old male nontoxic, well nourished in appearance, no acute signs of distress presents to the ED with c/o of nonproductive cough, subjective fever, chills, body aches, rhinorrhea, nasal congestion x2 weeks. Patient was seen and was diagnosed with pneumonia. Patient stated he has finished his antibiotics Augmentin. Patient had a negative COVID test. Patient stated has worsening of SOB. Stated has intermittent chest pains. Stated symptoms of chest pain is aggravated with cough and resolved with rest. Patient denies pleuritic chest pain. Patient denies any recent travels or long car rides. Patient denies any sick contacts. Patient denies any recent travels, long car, recent hospital stays. Patient denies any calf pain or calf tenderness. Patient denies any nausea, vomiting, hemoptysis, numbness, tingling, headache or stiff neck. Denies any allergies. MD Complaint: fever, cough, rhinorrhea, nasal congestion, other (Body aches, chest pain, shortness of breath) -: week(s) Severity: mild Severity scale (0 -10): 8 Quality: aching Consistency: intermittent Improves With: rest Worsens With: other (cough) Associated Symptoms: fever, chills, rhinorrhea, nasal congestion, cough, chest pain, shortness of breath. denies: myalgias, diaphoresis, headache, sore throat, stiff neck, abdominal pain, nausea, vomiting, diarrhea, dysuria, rash, confusion, right sweats, weight loss, epistaxis, hoarseness, ear pain Treatments Prior to Arrival: none - Related Data Previous Rx's Medication Instructions Recorded Last Taken Type Acetaminophen [Acetaminophen TAB] 650 mg PO Q4H PRN #15 tablet 06/19/19 Unknown Rx Albuterol INH(or & Nicu Only) 2 puff IH QID PRN #8.5 gram 06/19/19 Unknown Rx [ProAir HFA Inhaler] Amoxicillin/Potassium Clav 1 each PO BID #12 tablet 06/19/19 Unknown Rx [Augmentin 875-125 Tablet] Esomeprazole Magnesium [NexIUM] 40 mg PO QDAY #30 tab 06/19/19 06/17/19 09:00 Rx hydrALAZINE [Apresoline TAB] 25 mg PO BID #60 tab 06/19/19 Unknown Rx hydroCHLOROthiazide 12.5 mg PO DAILY #30 tab 06/19/19 06/17/19 09:00 Rx [Hydrochlorothiazide] oxyCODONE /ACETAMINOPHEN [Percocet 1 tab PO Q6H PRN #12 tablet 06/19/19 Unknown Rx 5/325 mg] Benzonatate [Tessalon Perles] 100 mg PO Q8HR PRN #12 capsule 07/08/19 Unknown Rx Allergies Allergy/AdvReac Type Severity Reaction Status Date / Time No Known Allergies Allergy Unverified 06/17/19 21:10 ED Review of Systems ROS: Stated complaint: CHEST PAIN Other details as noted in HPI Constitutional: denies: chills, fever Eyes: denies: eye pain, eye discharge, vision change ENT: congestion. denies: ear pain, throat pain Respiratory: cough, shortness of breath. denies: wheezing Cardiovascular: chest pain. denies: palpitations Endocrine: no symptoms reported Gastrointestinal: denies: abdominal pain, nausea, diarrhea Genitourinary: denies: urgency, dysuria Musculoskeletal: denies: back pain, joint swelling, arthralgia Skin: denies: rash, lesions Neurological: denies: headache, weakness, paresthesias Psychiatric: denies: anxiety, depression Hematological/Lymphatic: denies: easy bleeding, easy bruising ED Past Medical Hx - Past Medical History Previous Medical History?: Yes Hx Hypertension: Yes Hx GERD: Yes Additional medical history: Iron Deficiency - Social History Smoking Status: Never Smoker Substance Use Type: None - Medications Home Medications: Home Medications Medication Instructions Recorded Confirmed Last Taken Type Acetaminophen [Acetaminophen TAB] 650 mg PO Q4H PRN #15 tablet 06/19/19 Unknown Rx Albuterol INH(or & Nicu Only) 2 puff IH QID PRN #8.5 gram 06/19/19 Unknown Rx [ProAir HFA Inhaler] Amoxicillin/Potassium Clav 1 each PO BID #12 tablet 06/19/19 Unknown Rx [Augmentin 875-125 Tablet] Esomeprazole Magnesium [NexIUM] 40 mg PO QDAY #30 tab 06/19/19 06/18/19 06/17/19 09:00 Rx hydrALAZINE [Apresoline TAB] 25 mg PO BID #60 tab 06/19/19 Unknown Rx hydroCHLOROthiazide 12.5 mg PO DAILY #30 tab 06/19/19 06/18/19 06/17/19 09:00 Rx [Hydrochlorothiazide] oxyCODONE /ACETAMINOPHEN [Percocet 1 tab PO Q6H PRN #12 tablet 06/19/19 Unknown Rx 5/325 mg] Benzonatate [Tessalon Perles] 100 mg PO Q8HR PRN #12 capsule 07/08/19 Unknown Rx ED Physical Exam - General Limitations: No Limitations General appearance: alert, in no apparent distress - Head Head exam: Present: atraumatic, normocephalic - Eye Eye exam: Present: normal appearance - Neck Neck exam: Present: normal inspection, full ROM. Absent: tenderness, meningismus, lymphadenopathy - Respiratory Respiratory exam: Present: normal lung sounds bilaterally. Absent: respiratory distress, wheezes, rales, rhonchi, stridor, chest wall tenderness, accessory muscle use, decreased breath sounds, prolonged expiratory - Cardiovascular Cardiovascular Exam: Present: regular rate, normal rhythm, tachycardia, normal heart sounds. Absent: bradycardia, irregular rhythm, systolic murmur, diastolic murmur, rubs, gallop - Extremities Exam Extremities exam: Present: normal inspection, full ROM - Back Exam Back exam: Present: normal inspection, full ROM - Neurological Exam Neurological exam: Present: alert, oriented X3, normal gait - Psychiatric Psychiatric exam: Present: normal affect, normal mood - Skin Skin exam: Present: warm, dry, intact, normal color. Absent: rash ED Course Vital Signs 07/08/19 09:41 Temperature 98.3 F Pulse Rate 103 H Respiratory 20 Rate Blood Pressure 168/99 O2 Sat by Pulse 99 Oximetry - Reevaluation(s) Reevaluation #1: 07/08/19 11:34 Patient is speaking in full sentences with no signs of distress noted. - Consultations Consultation #1: 07/08/19 13:14 Patient has been consulted with Louis Alexis about patient history, physical exam, and labs/CT results and agrees to discharge plan of care. ED Medical Decision Making - Lab Data Result diagrams: 07/08/19 10:40 07/08/19 10:40 - Medical Decision Making This is a 44-year-old male that presents with atypical chest pain and nonproduc tive cough. Patient is stable and was examined by me. LUPE and HEART score 0 pints. Patient had a positive d-dimer. CTA of the chest is negative and within normal limits as per radiologist. EKG normal sinus rhythm with no significant changes in ST. Chest xray dictated by the radiologist within normal limits compared to previous chest x-ray. PAtient is notified of the Xray report with no questions noted. Labs within normal limits. Negative troponin. Patient has a negative COVID testing as of 2 weeks ago. Patient does not meet clinical concerns of COVID-19 but patient was instructed and educated on signs and symptoms and to self quarantine and seek medical attention as soon as possible if symptoms does occur. A chest pain referral form has been faxed to [facility] for a follow-up with the patient. Patient was instructed to Follow-up with a primary care/masseur/masseuse doctor in 2 days or if symptoms worsen and continue return to emergency room as soon as possible. At time of discharge, the patient does not seem toxic or ill in appearance. No acute signs of distress noted. Patient agrees to discharge treatment plan of care. No further questions noted by the patient. - Differential Diagnosis STEMI, NSTEMI, atypical chest pain, PE, pneumonia Critical care attestation.: If time is entered above; I have spent that time in minutes in the direct care of this critically ill patient, excluding procedure time. ED Disposition Clinical Impression: Atypical chest pain, Nonproductive cough Disposition: DC-01 TO HOME OR SELFCARE Is pt being admited?: No Does the pt Need Aspirin: No Condition: Stable Instructions: Chest Pain (ED) Additional Instructions: Follow-up with a masseur/masseuse doctor in 2 days or if symptoms worsen and continue return to emergency room as soon as possible. Prescriptions: Benzonatate [Tessalon Perles] 100 mg PO Q8HR PRN #12 capsule PRN Reason: Cough Referrals: PRIMARY MD ORI [Primary Care Provider] - 3-5 Days EARLENE FISHMAN MD [Staff Physician] - 3-5 Days [facility] [Provider Group] - 3-5 Days MORENO CAGLE MD [Staff Physician] - 07/10/19 Forms: Work/School Release Form(ED)
[2019-07-08 11:35] LABS: Alanine Aminotransferase 14 units/L (7-56); BUN/Creatinine Ratio 10; Blood Urea Nitrogen 10 mg/dL (9-20); Calcium 9.9 mg/dL (8.4-10.2); Hemolysis Index 4
[2019-07-08] MEDS ORDERED: SODIUM CHLORIDE 0.9% 1000 ML 1,000 ML IV ONE (11:35)
--- NOTE | 2019-07-08 12:41 | Cat Scan Report ---
CTA CHEST WITH IV CONTRAST INDICATION: Chest pain, shortness of breath. TECHNIQUE: Axial CT images were obtained through the chest after injection of 100 mL Omnipaque 350 IV contrast. 3 plane MIP reconstructions were produced. All CT scans at this location are performed using CT dose reduction for ALARA by means of automated exposure control. COMPARISON: None available. FINDINGS: Pulmonary Arteries: No pulmonary emboli. Lungs: There are sheetlike atelectasis in both lower lobes without focal consolidation or nodule. Trachea and Bronchi: No significant abnormality. Heart and Pericardium: There is a small pericardial effusion. Vasculature: No significant abnormality. Lymphatics: There is an enlarged right paratracheal node measuring 3.1 x 2.0 cm in the upper mediasti num. Additional Findings: None. Upper Abdomen: No acute findings. Skeletal Structures: No significant osseous abnormality. IMPRESSION: 1. No CT evidence for pulmonary embolism. 2. No acute pulmonary findings. 3. Small pericardial effusion. 4. Solitary enlarged right paratracheal lymph node measuring 3.1 x 2.0 cm.. Signer Name: Ez Cervantes MD Signed: 07/08/2019 12:36 PM Workstation Name: [id number]
[2019-07-08 13:25] VITALS: BP 160/90
== END 2019-07-08 13:49 | disposition home or self-care (01) ==
LOC: ED 09:30
DX: R05 Cough (principal); R07.89 Other chest pain; I10 Essential (primary) hypertension; K21.9 Gastro-esophageal reflux disease without esophagitis; Z79.899 Other long term (current) drug therapy
CPT/HCPCS: 36415; 71046; 71275; 80053; 84484; 85025; 85379; 85610; 85730; 93005; 99285; J7030; Q9967

== ENCOUNTER 2019-07-10 14:25 | Emergency (ER) | payer SELFPAY ==
[2019-07-10] MEDS: ACETAMINOPHEN 500 MG TAB PO ONE (15:51)
[2019-07-10] MEDS: SODIUM CHLORIDE 0.9% 1000 ML IV SOLN IV ONE (16:00)
--- NOTE | 2019-07-10 16:31 | XRay Report ---
CHEST 2 VIEWS INDICATION / CLINICAL INFORMATION: cough, fever. COMPARISON: 07/08/2019 FINDINGS: SUPPORT DEVICES: None. HEART / MEDIASTINUM: No significant abnormality. LUNGS / PLEURA: Linear atelectasis at the bases is again seen. No definite infiltrate, edema or effus ion. No pneumothorax. ADDITIONAL FINDINGS: No significant additional findings. IMPRESSION: 1. No significant change. Signer Name: Julius Pringle MD Signed: 07/10/2019 4:27 PM Workstation Name: [id number]
[2019-07-10 16:34] LABS: Basophils % (Auto) 0.4 % (0.0-1.8); Eosinophils % (Auto) 0.3 % (0.0-4.3); Hematocrit 35.2 % (35.5-45.6); Hemoglobin 11.6 gm/dl (11.8-15.2); Lymphocytes # (Auto) 1.4 K/mm3 (1.2-5.4); Lymphocytes % (Auto) 14.6 % (13.4-35.0); Mean Corpuscular HGB Conc 33 % (32-34); Mean Corpuscular Volume 70 fl (84-94); Monocytes % (Auto) 10.5 % (0.0-7.3); Platelet Count 341 K/mm3 (140-440); Red Blood Count 5.01 M/mm3 (3.65-5.03)
[2019-07-10 16:55] LABS: Alanine Aminotransferase 12 units/L (7-56); Albumin 4.2 g/dL (3.9-5); BUN/Creatinine Ratio 8; Blood Urea Nitrogen 8 mg/dL (9-20); Hemolysis Index 0
--- NOTE | 2019-07-10 17:01 | Emergency Department Report ---
ED General Adult HPI - General Chief complaint: Dyspnea/Respdistress Stated complaint: CHEST PAIN Time Seen by Provider: 07/10/19 16:12 Source: patient Mode of arrival: Ambulatory Limitations: No Limitations - History of Present Illness Initial comments: Patient is a 44-year-old F Malagasy male who is presenting with some chest discomfort. Patient's has a past medical history of hypertension and was recently admitted as a COVID-19 rule out. On 06/18/2019 patient was admitted secondary to having cough fever congestion chest pain for approximately 1 week. Chest x-ray was worrisome for discoid atelectasis versus infiltrate. During the patient's admission the patient did have COVID-19 testing which was negative. Patient was discharged with Augmentin and medication for symptomatic relief. Patient presented 2 days ago because his cough is started to decline however he was still having chest discomfort. Patient is had a CT of the chest to rule out pulmonary embolus as his d-dimer was elevated. No pulmonary embolus was found and patient had no acute lung findings. Patient was discharged home. Patient did follow-up with a [employer] operator who sent him here today to be reassessed. Patient was febrile tachycardic and complaining of some chest discomfort with cough and while lying flat at night at times. Patient denies any nausea vomiting or diarrhea. He has had bouts of diaphoresis. Severity scale (0 -10): 0 - Related Data Previous Rx's Medication Instructions Recorded Last Taken Type Acetaminophen [Acetaminophen TAB] 650 mg PO Q4H PRN #15 tablet 06/19/19 Unknown Rx Albuterol INH(or & Nicu Only) 2 puff IH QID PRN #8.5 gram 06/19/19 Unknown Rx [ProAir HFA Inhaler] Amoxicillin/Potassium Clav 1 each PO BID #12 tablet 06/19/19 Unknown Rx [Augmentin 875-125 Tablet] Esomeprazole Magnesium [NexIUM] 40 mg PO QDAY #30 tab 06/19/19 06/17/19 09:00 Rx hydrALAZINE [Apresoline TAB] 25 mg PO BID #60 tab 06/19/19 Unknown Rx hydroCHLOROthiazide 12.5 mg PO DAILY #30 tab 06/19/19 06/17/19 09:00 Rx [Hydrochlorothiazide] oxyCODONE /ACETAMINOPHEN [Percocet 1 tab PO Q6H PRN #12 tablet 06/19/19 Unknown Rx 5/325 mg] Benzonatate [Tessalon Perles] 100 mg PO Q8HR PRN #12 capsule 07/08/19 Unknown Rx Azithromycin [Zithromax Z-LIZA] 250 mg PO DAILY #6 tablet 07/10/19 Unknown Rx Ketorolac [Toradol] 10 mg PO Q6H PRN #12 tablet 07/10/19 Unknown Rx methOCARBAMOL [Robaxin TAB] 500 mg PO Q6H PRN #14 tablet 07/10/19 Unknown Rx Allergies Allergy/AdvReac Type Severity Reaction Status Date / Time No Known Allergies Allergy Unverified 06/17/19 21:10 ED Review of Systems ROS: Stated complaint: CHEST PAIN Other details as noted in HPI Comment: All other systems reviewed and negative ED Past Medical Hx - Past Medical History Previous Medical History?: Yes Hx Hypertension: Yes Hx GERD: Yes Additional medical history: Iron Deficiency - Social History Smoking Status: Never Smoker Substance Use Type: None - Medications Home Medications: Home Medications Medication Instructions Recorded Confirmed Last Taken Type Acetaminophen [Acetaminophen TAB] 650 mg PO Q4H PRN #15 tablet 06/19/19 Unknown Rx Albuterol INH(or & Nicu Only) 2 puff IH QID PRN #8.5 gram 06/19/19 Unknown Rx [ProAir HFA Inhaler] Amoxicillin/Potassium Clav 1 each PO BID #12 tablet 06/19/19 Unknown Rx [Augmentin 875-125 Tablet] Esomeprazole Magnesium [NexIUM] 40 mg PO QDAY #30 tab 06/19/19 06/18/19 06/17/19 09:00 Rx hydrALAZINE [Apresoline TAB] 25 mg PO BID #60 tab 06/19/19 Unknown Rx hydroCHLOROthiazide 12.5 mg PO DAILY #30 tab 06/19/19 06/18/19 06/17/19 09:00 Rx [Hydrochlorothiazide] oxyCODONE /ACETAMINOPHEN [Percocet 1 tab PO Q6H PRN #12 tablet 06/19/19 Unknown Rx 5/325 mg] Benzonatate [Tessalon Perles] 100 mg PO Q8HR PRN #12 capsule 07/08/19 Unknown Rx Azithromycin [Zithromax Z-LIZA] 250 mg PO DAILY #6 tablet 07/10/19 Unknown Rx Ketorolac [Toradol] 10 mg PO Q6H PRN #12 tablet 07/10/19 Unknown Rx methOCARBAMOL [Robaxin TAB] 500 mg PO Q6H PRN #14 tablet 07/10/19 Unknown Rx ED Physical Exam - General Limitations: No Limitations General appearance: alert, in no apparent distress - Head Head exam: Present: atraumatic, normocephalic - Eye Eye exam: Present: normal appearance, PERRL, EOMI - ENT ENT exam: Present: normal orophraynx, mucous membranes moist - Neck Neck exam: Present: normal inspection - Respiratory Respiratory exam: Present: normal lung sounds bilaterally. Absent: respiratory distress, wheezes, rales, rhonchi - Cardiovascular Cardiovascular Exam: Present: normal rhythm, tachycardia. Absent: systolic murmur, diastolic murmur, rubs, gallop - GI/Abdominal GI/Abdominal exam: Present: soft, normal bowel sounds. Absent: distended, tenderness, guarding, rebound - Rectal Rectal exam: Present: deferred - Extremities Exam Extremities exam: Present: normal inspection - Back Exam Back exam: Present: normal inspection - Neurological Exam Neurological exam: Present: alert, oriented X3 - Psychiatric Psychiatric exam: Present: normal affect, normal mood - Skin Skin exam: Present: warm, dry, intact, normal color. Absent: rash ED Course Vital Signs 07/10/19 07/10/19 07/10/19 14:29 15:17 15:28 Temperature 99.2 F 101.7 F H Pulse Rate 122 H 119 H Respiratory 16 19 Rate Blood Pressure 143/100 Blood Pressure 150/103 [Left] O2 Sat by Pulse 100 98 97 Oximetry 07/10/19 07/10/19 07/10/19 15:30 16:00 16:30 Temperature Pulse Rate 114 H 111 H 109 H Respiratory 28 H 17 20 Rate Blood Pressure 139/91 135/89 130/87 Blood Pressure [Left] O2 Sat by Pulse 99 100 Oximetry 07/10/19 07/10/19 07/10/19 17:00 17:30 17:34 Temperature 99.0 F Pulse Rate 101 H 103 H Respiratory 20 23 Rate Blood Pressure 133/89 135/88 Blood Pressure [Left] O2 Sat by Pulse 98 Oximetry ED Medical Decision Making - Lab Data Result diagrams: 07/10/19 15:42 07/10/19 16:00 Lab Results 04/07/10/19 07/10/19 Range/Units 15:42 15:42 15:42 WBC 9.7 (4.5-11.0) K/mm3 RBC 5.01 (3.65-5.03) M/mm3 Hgb 11.6 L (11.8-15.2) gm/dl Hct 35.2 L (35.5-45.6) % MCV 70 L (84-94) fl MCH 23 L (28-32) pg MCHC 33 (32-34) % RDW 16.0 H (13.2-15.2) % Plt Count 341 (140-440) K/mm3 Lymph % (Auto) 14.6 (13.4-35.0) % Waldo % (Auto) 10.5 H (0.0-7.3) % Eos % (Auto) 0.3 (0.0-4.3) % Baso % (Auto) 0.4 (0.0-1.8) % Lymph # 1.4 (1.2-5.4) K/mm3 Waldo # 1.0 H (0.0-0.8) K/mm3 Eos # 0.0 (0.0-0.4) K/mm3 Baso # 0.0 (0.0-0.1) K/mm3 Seg Neutrophils % 74.2 H (40.0-70.0) % Seg Neutrophils # 7.2 (1.8-7.7) K/mm3 VBG pH 7.340 (7.320-7.420) Sodium (137-145) mmol/L Potassium (3.6-5.0) mmol/L Chloride (98-107) mmol/L Carbon Dioxide (22-30) mmol/L Anion Gap mmol/L BUN (9-20) mg/dL Creatinine (0.8-1.5) mg/dL Estimated GFR ml/min BUN/Creatinine Ratio % Glucose (75-100) mg/dL Lactic Acid 1.20 (0.7-2.0) mmol/L Calcium (8.4-10.2) mg/dL Total Bilirubin (0.1-1.2) mg/dL AST (5-40) units/L ALT (7-56) units/L Alkaline Phosphatase (35-129) units/L Total Protein (6.3-8.2) g/dL Albumin (3.9-5) g/dL Albumin/Globulin Ratio % 07/10/19 Range/Units 16:00 WBC (4.5-11.0) K/mm3 RBC (3.65-5.03) M/mm3 Hgb (11.8-15.2) gm/dl Hct (35.5-45.6) % MCV (84-94) fl MCH (28-32) pg MCHC (32-34) % RDW (13.2-15.2) % Plt Count (140-440) K/mm3 Lymph % (Auto) (13.4-35.0) % Waldo % (Auto) (0.0-7.3) % Eos % (Auto) (0.0-4.3) % Baso % (Auto) (0.0-1.8) % Lymph # (1.2-5.4) K/mm3 Waldo # (0.0-0.8) K/mm3 Eos # (0.0-0.4) K/mm3 Baso # (0.0-0.1) K/mm3 Seg Neutrophils % (40.0-70.0) % Seg Neutrophils # (1.8-7.7) K/mm3 VBG pH (7.320-7.420) Sodium 133 L (137-145) mmol/L Potassium 3.6 D (3.6-5.0) mmol/L Chloride 94.0 L (98-107) mmol/L Carbon Dioxide 25 (22-30) mmol/L Anion Gap 18 mmol/L BUN 8 L (9-20) mg/dL Creatinine 1.0 (0.8-1.5) mg/dL Estimated GFR > 60 ml/min BUN/Creatinine Ratio 8 % Glucose 90 (75-100) mg/dL Lactic Acid (0.7-2.0) mmol/L Calcium 10.0 (8.4-10.2) mg/dL Total Bilirubin 0.40 (0.1-1.2) mg/dL AST 12 (5-40) units/L ALT 12 (7-56) units/L Alkaline Phosphatase 102 (35-129) units/L Total Protein 8.9 H (6.3-8.2) g/dL Albumin 4.2 (3.9-5) g/dL Albumin/Globulin Ratio 0.9 % - EKG Data -: EKG Interpreted by Me EKG shows normal: sinus rhythm, axis, intervals, QRS complexes, ST-T waves Rate: tachycardia - Radiology Data [facility] [address] [place] [address] XRay Report Signed Patient: CHLOE MARTINEZ MR#: [id number] : 1975 Acct:[id number] Age/Sex: 44 / M ADM Date: 07/10/19 Loc: ED Attending Dr: Ordering Physician: IVY DESIR MD Date of Service: 07/10/19 Procedure(s): XR chest routine 2V Accession Number(s): [id number] cc: IVY DESIR MD Fluoro Time In Minutes: CHEST 2 VIEWS INDICATION / CLINICAL INFORMATION: cough, fever. COMPARISON: 07/08/2019 FINDINGS: SUPPORT DEVICES: None. HEART / MEDIASTINUM: No significant abnormality. LUNGS / PLEURA: Linear atelectasis at the bases is again seen. No definite infiltrate, edema or effusion. No pneumothorax. ADDITIONAL FINDINGS: No significant additional findings. IMPRESSION: 1. No significant change. Signer Name: Julius Pringle MD Signed: 07/10/2019 4:27 PM Workstation Name: [id number] - Medical Decision Making Patient is a 44-year-old F Malagasy male who is presenting with fever. Patient has had a cough for approximately 3 weeks. Cough is improving however patient is still having some persistent chest discomfort. Patient likely with an acute bronchitis. Patient tested negative for COVID-19 earlier this month but still could have COVID-19. Suggested to the patient get outpatient testing. Patient does not meet criteria for admission. Patient is O2 sat is 99% his chest x-ray is clear. Patient to be started on azithromycin and a muscle relaxant for costochondritis. Patient was hydrated which did help with his tachycardia. Patient's sodium was slightly low secondary to him having decreased appetite over the last several weeks. Critical care attestation.: If time is entered above; I have spent that time in minutes in the direct care of this critically ill patient, excluding procedure time. ED Disposition Clinical Impression: Acute bronchitis, Costochondral chest pain Disposition: - TO HOME OR SELFCARE Is pt being admited?: No Condition: Stable Instructions: Acute Bronchitis (ED), Chest Pain (ED) Additional Instructions: Please contact the primary care physician given to set up outpatient testing for COVID-19 Referrals: EARLENE FISHMAN MD [Staff Physician] - 3-5 Days Time of Disposition: 18:56
[2019-07-10 17:35] VITALS: BP 135/88
== END 2019-07-10 19:35 | disposition home or self-care (01) ==
LOC: ED 14:25
DX: J20.9 Acute bronchitis, unspecified (principal); R07.89 Other chest pain; I10 Essential (primary) hypertension; K21.9 Gastro-esophageal reflux disease without esophagitis; D50.9 Iron deficiency anemia, unspecified; Z79.899 Other long term (current) drug therapy
CPT/HCPCS: 36415; 71046; 80053; 82140; 82805; 85025; 87040; 93005; 99284; J7030